=== PATIENT | female | born 1995 | race African-American/Black ===

== ENCOUNTER 2025-04-15 17:04 | Emergency (ER) | payer OTHER ==
[~2025-04-15] VITALS: Ht 172.7 cm; Wt 77.0 kg
[2025-04-15 17:09] VITALS: BP 132/85; PULSE 87; RESP 16; TEMP 98.1; O2SAT 100
[2025-04-15] MEDS: HYDROCODONE/ACETAMINOPHEN 5/325MG TABLET PO ONE (18:00)
[2025-04-15] MEDS: ACETAMINOPHEN 325MG TABLET PO ONE (18:01)
[2025-04-15] MEDS ORDERED: IBUP-1455 MT (19:13)
== END 2025-04-15 19:58 | disposition home or self-care (01) ==
LOC: ER 17:04
DX: S93.402A Sprain of unspecified ligament of left ankle, initial encounter (principal); Z88.0 Allergy status to penicillin; W01.0XXA Fall on same level from slipping, tripping and stumbling without subsequent striking against object, initial encounter; Y93.89 Activity, other specified; Y92.89 Other specified places as the place of occurrence of the external cause; Y99.8 Other external cause status
CPT/HCPCS: 81025; 73562; 73610; 29505; 99284; Z7610